=== PATIENT | female | born 1930 | race Caucasian/White ===

== ENCOUNTER 2019-03-05 18:53 | Inpatient (IN) | payer MEDICARE, BC ==
[~2019-03-05] VITALS: Ht 167.6 cm; Wt 74.0 kg
[~2019-03-05 18:53] MED LIST: ACET-3068 PO; CALC-642 PO; CHOL100010 PO; DABI150C PO; DULO-31 PO; FAMO-128 PO; HYDR25TA4 PO; LACT1CAP65 PO; METH4TAB81 PO; SOLI5TAB6 PO; SYN0.1T PO; TRAZ-91 PO; VITA1CAP
[2019-03-05] MEDS ORDERED: acetaminophen 325mg tablet PO STA (19:12)
[2019-03-05] MEDS ORDERED: methylPREDNISolone sod succ 125mg/2ml vial IV ONE (19:15)
[2019-03-05] MEDS ORDERED: ipratropium/albuterol 3ml nebule NEB ONE (19:15)
[2019-03-05] MEDS ORDERED: CefTRIAXone 2gm/D5W 50ml 50 ML IV ONE (19:15)
[2019-03-05] MEDS ORDERED: albuterol 2.5 MG/3 ML nebule NEB ONE (19:15)
[2019-03-05] MEDS ORDERED: LOSA25TA96 PO (19:32)
[2019-03-05] MEDS ORDERED: MULT-955 PO (19:32)
[2019-03-05 19:42] LABS: BASOPHILS # (AUTO) 0.1 X10'3 (0-0.2); EOSINOPHILS # (AUTO) 0.4 X10'3 (0-0.9); EOSINOPHILS % (AUTO) 3.9 % (0-6); HEMATOCRIT 35.4 % (35.0-45.0); HEMOGLOBIN 12.1 g/dl (12.0-16.0); LYMPHOCYTES # (AUTO) 0.8 X10'3 (1.1-4.8); LYMPHOCYTES % (AUTO) 7.4 % (21-51); MEAN CORPUSCULAR HEMOGLOBIN 32.3 PG (27.0-31.0); MEAN CORPUSCULAR HGB CONC 34.2 g/dL (33.0-36.5); MEAN CORPUSCULAR VOLUME 94.4 FL (78-98); MEAN PLATELET VOLUME 7.9 FL (7.4-10.4); MONOCYTES # (AUTO) 1.1 X10'3 (0-0.9); MONOCYTES % (AUTO) 10.7 % (2-12); NEUTROPHILS # (AUTO) 8.3 X10'3 (1.8-7.7); PLATELET COUNT 258 X10'3 (140-440); RED BLOOD COUNT 3.75 X10'6 (4.20-5.60); RED CELL DISTRIBUTION WIDTH 13.8 % (11.5-14.5); WHITE BLOOD COUNT 10.8 X10'3 (4.5-11.0)
[2019-03-05 19:56] LABS: ALANINE AMINOTRANSFERASE 18 U/L (12-78); ALBUMIN 3.4 G/DL (3.4-5.0); ALBUMIN/GLOBULIN RATIO 0.9 (1.1-1.5); ALKALINE PHOSPHATASE 73 IU/L (46-116); ANION GAP 11 (8-16); ASPARTATE AMINO TRANSFERASE 22 U/L (10-37); BILIRUBIN,TOTAL 0.6 MG/DL (0.1-1.0); BLOOD UREA NITROGEN 12 MG/DL (7-18); BUN/CREATININE RATIO 9.2 (6.6-38.0); CHLORIDE 100 MMOL/L (99-107); GLUCOSE 136 MG/DL (70-104); MAGNESIUM 1.7 MG/DL (1.5-2.4); POTASSIUM 4.3 MMOL/L (3.5-5.1); SODIUM 134 MMOL/L (135-145); TOTAL CARBON DIOXIDE 23.3 MMOL/L (24-32); TOTAL PROTEIN 7.4 G/DL (6.4-8.2); eGFR 39 ML/MIN
--- NOTE | 2019-03-05 20:20 | NUR ---
PATIENT DRINKING ICE WATER, COOOL WASH CLOTH TO FOREHEAD
[2019-03-05 20:37] LABS: CLARITY,URINE CLEAR (Clear); COLOR,URINE YELLOW (Yellow); GLUCOSE, URINE NEGATIVE (Neg); KETONES,URINE NEGATIVE (Neg); LEUKOCYTE ESTERASE ,URINE NEGATIVE (Neg); NITRITES, URINE NEGATIVE (Neg); OCCULT BLOOD,URINE TRACE-INTACT (Neg); PH,URINE 6.5 (4.8-8.0); PROTEIN,URINE TRACE mg/dl (Neg); UROBILINOGEN,URINE 0.2 E.U/dL (0.2-1.0)
[2019-03-05 20:48] LABS: BACTERIA,URINE NONE SEEN /HPF (Neg); RBC,URINE 0-2 /HPF (0-2); SQUAMOUS EPITHELIAL CELL,UR FEW /LPF (FEW); UA COLLECTION TYPE CLN CATCH MIDSTREAM; WBC,URINE 0-4 /HPF (0-4)
[2019-03-05] MEDS ORDERED: dabigatran 150mg capsule PO STA (21:17)
[2019-03-05] MEDS ORDERED: traZODone 50mg tablet PO STA (21:17)
[2019-03-05] MEDS ORDERED: losartan 50mg tablet PO STA (21:17)
[2019-03-05] MEDS ORDERED: acetaminophen 325mg tablet PO PRN ×2 (21:20)
[2019-03-05] MEDS ORDERED: magnesium hydroxide 30ml (MOM) UD suspension PO PRN (21:20)
[2019-03-05] MEDS ORDERED: ondansetron/PF 4mg/2ml inj IV PRN (21:20)
[2019-03-05] MEDS ORDERED: mag hydrox/Alum hydrox/simeth 30ml oral suspension PO PRN (21:20)
[2019-03-05] MEDS ORDERED: morphine 2 MG/ML inj. syringe IV PRN ×2 (21:20)
--- NOTE | 2019-03-05 21:20 | NUR ---
Dr Lees said that he would like pradaxa and losartan and trazadone for her for tonight, and for me to order them, so done.
[2019-03-05 23:00] VITALS: BP 144/75
--- NOTE | 2019-03-05 23:00 | NUR ---
joao law she has stress incont when coughing Addendum: 03/06/19 at 0149 by Allegra Lo RN Amended: Links added.
[2019-03-06 06:05] LABS: BASOPHILS % (AUTO) 0.2 % (0-1); EOSINOPHILS % (AUTO) 0.1 % (0-6); HEMATOCRIT 36.1 % (35.0-45.0); HEMOGLOBIN 12.3 g/dl (12.0-16.0); LYMPHOCYTES # (AUTO) 0.8 X10'3 (1.1-4.8); LYMPHOCYTES % (AUTO) 7.8 % (21-51); MEAN CORPUSCULAR HEMOGLOBIN 32.1 PG (27.0-31.0); MEAN CORPUSCULAR VOLUME 94.4 FL (78-98); MEAN PLATELET VOLUME 8.2 FL (7.4-10.4); MONOCYTES # (AUTO) 0.2 X10'3 (0-0.9); MONOCYTES % (AUTO) 2.2 % (2-12); NEUTROPHILS # (AUTO) 8.9 X10'3 (1.8-7.7); NEUTROPHILS % (AUTO) 89.7 % (42-75); PLATELET COUNT 277 X10'3 (140-440); RED BLOOD COUNT 3.82 X10'6 (4.20-5.60); RED CELL DISTRIBUTION WIDTH 13.4 % (11.5-14.5); WHITE BLOOD COUNT 9.9 X10'3 (4.5-11.0)
[2019-03-06 06:23] LABS: ALBUMIN 3.1 G/DL (3.4-5.0); ANION GAP 10 (8-16); BLOOD UREA NITROGEN 12 MG/DL (7-18); BUN/CREATININE RATIO 12.2 (6.6-38.0); CALCIUM 9.1 MG/DL (8.5-10.1); CHLORIDE 105 MMOL/L (99-107); CREATININE 0.98 MG/DL (0.40-0.90); GLUCOSE 200 MG/DL (70-104); SODIUM 139 MMOL/L (135-145); TOTAL CARBON DIOXIDE 23.9 MMOL/L (24-32); eGFR 54 ML/MIN
[2019-03-06 07:20] VITALS: BP 138/72
[2019-03-06] MEDS: multivitamins, therapeutics tablet PO SCH (07:42)
[2019-03-06] MEDS: lactobacillus rhamnosus 10,000 MMU CELLS/CAPSULE PO SCH (07:44)
[2019-03-06] MEDS: levoTHYROXINE 100mcg tablet PO SCH (07:44)
[2019-03-06] MEDS: vitamin D (cholecalciferol) 1,000 unit tablet PO SCH (07:44)
[2019-03-06] MEDS: famotidine 20mg tablet PO SCH ×2 (07:44→20:43)
[2019-03-06] MEDS: oxybutynin 5mg tablet PO SCH ×3 (07:45→20:44)
[2019-03-06] MEDS: dabigatran 150mg capsule PO SCH ×2 (07:46→20:43)
[2019-03-06] MEDS: furosemide 20 MG/2 ML vial IV SCH (07:46)
[2019-03-06] MEDS ORDERED: non-formulary drug (Lactobacillus Acidophilus (Probiotic) 1 EACH) PO SCH (08:00)
[2019-03-06] MEDS ORDERED: levoFLOXACIN-Levaquin 750MG/D5 150 ML IV SCH (08:00)
[2019-03-06] MEDS ORDERED: enoxaparin 40mg/0.4ml syringe SUBCUT SCH (08:00)
[2019-03-06] MEDS ORDERED: HYDROchlorothiazide 25mg tablet PO SCH (08:00)
[2019-03-06] MEDS ORDERED: non-formulary drug (Multivitamin (Daily Value) 1 TAB) PO SCH (08:00)
[2019-03-06] MEDS ORDERED: losartan 25mg tablet PO SCH (08:00)
[2019-03-06 11:23] VITALS: BP 168/78
--- NOTE | 2019-03-06 12:05 | NUR ---
aware of increased BP. Addendum: 03/06/19 at 1205 by Silvia Hall RN Amended: Links added.
[2019-03-06] MEDS ORDERED: amLODIPine 2.5mg tablet PO ONE (12:35)
[2019-03-06] MEDS ORDERED: albuterol 2.5 MG/3 ML nebule ONE (13:25)
[2019-03-06] MEDS ORDERED: albuterol 2.5 MG/3 ML nebule NEB ONE (13:30)
[2019-03-06] MEDS ORDERED: iohexol 300mg/ml 100ml inj. ONE (13:34)
[2019-03-06] MEDS: HYDROcodone/acetaminophen 5mg/325mg tablet PO PRN ×2 (17:40→22:52)
--- NOTE | 2019-03-06 18:22 | NUR ---
Problems reprioritized. Patient report given, questions answered & plan of care reviewed with GRETTA Barros.
--- NOTE | 2019-03-06 18:30 | NUR ---
Patient in room [facility]. I have received report from Silvia GLYNN and had the opportunity to ask questions and assume patient care.
[2019-03-06 19:00] VITALS: BP 140/59
[2019-03-06] MEDS: traZODone 50mg tablet PO SCH (20:44)
[2019-03-06] MEDS: losartan 25mg tablet PO SCH (20:49)
[2019-03-06] MEDS ORDERED: TRAZODONE HCL 100 MG PO SCH (21:00)
--- NOTE | 2019-03-06 22:50 | NUR ---
D/C tele monitoring per MD orders.
[2019-03-07] VITALS: BP 120/68
[2019-03-07 05:42] LABS: BASOPHILS # (AUTO) 0.1 X10'3 (0-0.2); BASOPHILS % (AUTO) 0.4 % (0-1); EOSINOPHILS # (AUTO) 0.1 X10'3 (0-0.9); EOSINOPHILS % (AUTO) 0.7 % (0-6); HEMATOCRIT 33.4 % (35.0-45.0); HEMOGLOBIN 11.1 g/dl (12.0-16.0); LYMPHOCYTES # (AUTO) 0.8 X10'3 (1.1-4.8); LYMPHOCYTES % (AUTO) 5.4 % (21-51); MEAN CORPUSCULAR HEMOGLOBIN 31.4 PG (27.0-31.0); MEAN CORPUSCULAR HGB CONC 33.3 g/dL (33.0-36.5); MEAN CORPUSCULAR VOLUME 94.4 FL (78-98); MEAN PLATELET VOLUME 7.8 FL (7.4-10.4); MONOCYTES # (AUTO) 1.4 X10'3 (0-0.9); MONOCYTES % (AUTO) 8.9 % (2-12); NEUTROPHILS # (AUTO) 13.3 X10'3 (1.8-7.7); NEUTROPHILS % (AUTO) 84.6 % (42-75); PLATELET COUNT 279 X10'3 (140-440); RED BLOOD COUNT 3.54 X10'6 (4.20-5.60); RED CELL DISTRIBUTION WIDTH 13.5 % (11.5-14.5); WHITE BLOOD COUNT 15.7 X10'3 (4.5-11.0)
[2019-03-07 05:47] LABS: ALBUMIN 2.9 G/DL (3.4-5.0); ANION GAP 8 (8-16); BLOOD UREA NITROGEN 16 MG/DL (7-18); BUN/CREATININE RATIO 14.5 (6.6-38.0); CALCIUM 8.8 MG/DL (8.5-10.1); CHLORIDE 104 MMOL/L (99-107); GLUCOSE 119 MG/DL (70-104); SODIUM 138 MMOL/L (135-145); eGFR 47 ML/MIN
--- NOTE | 2019-03-07 06:50 | NUR ---
Problems reprioritized. Patient report given, questions answered & plan of care reviewed with Roselyn GLYNN.
[2019-03-07 07:00] VITALS: BP 131/75
--- NOTE | 2019-03-07 07:09 | NUR ---
Patient in room [facility]. I have received report from Fiorella GLYNN and had the opportunity to ask questions and assume patient care.
[2019-03-07] MEDS: lactobacillus rhamnosus 10,000 MMU CELLS/CAPSULE PO SCH (07:40)
[2019-03-07] MEDS: furosemide 20 MG/2 ML vial IV SCH (07:40)
[2019-03-07] MEDS: oxybutynin 5mg tablet PO SCH ×3 (07:40→20:24)
[2019-03-07] MEDS: multivitamins, therapeutics tablet PO SCH (07:40)
[2019-03-07] MEDS: famotidine 20mg tablet PO SCH ×2 (07:40→20:25)
[2019-03-07] MEDS: levoTHYROXINE 100mcg tablet PO SCH (07:41)
[2019-03-07] MEDS: dabigatran 150mg capsule PO SCH ×2 (07:41→20:25)
[2019-03-07] MEDS: vitamin D (cholecalciferol) 1,000 unit tablet PO SCH (07:42)
[2019-03-07] MEDS: HYDROcodone/acetaminophen 5mg/325mg tablet PO PRN ×2 (10:41→20:23)
[2019-03-07 11:00] VITALS: BP 133/75
--- NOTE | 2019-03-07 18:45 | NUR ---
Problems reprioritized. Patient report given, questions answered & plan of care reviewed with Pat RN.
[2019-03-07] MEDS ORDERED: albuterol 2.5 MG/3 ML nebule NEB PRN (19:00)
[2019-03-07 19:30] VITALS: BP 146/54
--- NOTE | 2019-03-07 19:30 | NUR ---
has stress incont with coughing Addendum: 03/07/19 at 2332 by Allegra Lo RN Amended: Links added.
--- NOTE | 2019-03-07 19:30 | NUR ---
pt aware of new orders for resp tx for SOB or wheezing; denies SOB at this time; also informed of cough med PRN & to call when needed Addendum: 03/07/19 at 2332 by Allegra Lo RN Amended: Links added.
[2019-03-07] MEDS: guaiFENesin/DM 10ml UD oral syrup PO PRN (20:19)
[2019-03-07] MEDS: traZODone 50mg tablet PO SCH (20:24)
[2019-03-07] MEDS: losartan 25mg tablet PO SCH (20:25)
--- NOTE | 2019-03-07 22:35 | NUR ---
Patient in room [facility]. I have received report from GRETTA Ojeda and had the opportunity to ask questions and assume patient care.
[2019-03-08] VITALS: BP 114/59
--- NOTE | 2019-03-08 02:24 | NUR ---
I agree with Dalia Ojeda's physical assessment.
[2019-03-08] MEDS: guaiFENesin/DM 10ml UD oral syrup PO PRN ×2 (04:48→11:15)
[2019-03-08 04:52] LABS: BASOPHILS # (AUTO) 0.1 X10'3 (0-0.2); EOSINOPHILS # (AUTO) 0.7 X10'3 (0-0.9); EOSINOPHILS % (AUTO) 7.3 % (0-6); HEMATOCRIT 35.3 % (35.0-45.0); HEMOGLOBIN 11.9 g/dl (12.0-16.0); LYMPHOCYTES # (AUTO) 1.9 X10'3 (1.1-4.8); LYMPHOCYTES % (AUTO) 19.8 % (21-51); MEAN CORPUSCULAR HGB CONC 33.7 g/dL (33.0-36.5); MEAN CORPUSCULAR VOLUME 94.9 FL (78-98); MEAN PLATELET VOLUME 8.1 FL (7.4-10.4); MONOCYTES # (AUTO) 1.2 X10'3 (0-0.9); MONOCYTES % (AUTO) 12.1 % (2-12); NEUTROPHILS # (AUTO) 5.8 X10'3 (1.8-7.7); NEUTROPHILS % (AUTO) 59.8 % (42-75); PLATELET COUNT 294 X10'3 (140-440); RED BLOOD COUNT 3.72 X10'6 (4.20-5.60); RED CELL DISTRIBUTION WIDTH 13.6 % (11.5-14.5); WHITE BLOOD COUNT 9.7 X10'3 (4.5-11.0)
[2019-03-08 05:16] LABS: ALBUMIN 3.1 G/DL (3.4-5.0); ANION GAP 8 (8-16); BLOOD UREA NITROGEN 16 MG/DL (7-18); BUN/CREATININE RATIO 13.3 (6.6-38.0); CHLORIDE 104 MMOL/L (99-107); GLUCOSE 81 MG/DL (70-104); POTASSIUM 3.8 MMOL/L (3.5-5.1); SODIUM 140 MMOL/L (135-145); TOTAL CARBON DIOXIDE 28.5 MMOL/L (24-32); eGFR 42 ML/MIN
--- NOTE | 2019-03-08 06:01 | NUR ---
Problems reprioritized. Patient report given, questions answered & plan of care reviewed with GRETTA Dempsey.
--- NOTE | 2019-03-08 06:37 | NUR ---
Patient in room [facility]. I have received report from Kal GLYNN and had the opportunity to ask questions and assume patient care.
[2019-03-08 07:00] VITALS: BP 126/68
[2019-03-08] MEDS: losartan 25mg tablet PO SCH (07:23)
[2019-03-08] MEDS: vitamin D (cholecalciferol) 1,000 unit tablet PO SCH (07:23)
[2019-03-08] MEDS: furosemide 20 MG/2 ML vial IV SCH (07:23)
[2019-03-08] MEDS: famotidine 20mg tablet PO SCH (07:24)
[2019-03-08] MEDS: dabigatran 150mg capsule PO SCH (07:24)
[2019-03-08] MEDS: lactobacillus rhamnosus 10,000 MMU CELLS/CAPSULE PO SCH (07:24)
[2019-03-08] MEDS: multivitamins, therapeutics tablet PO SCH (07:24)
[2019-03-08] MEDS: oxybutynin 5mg tablet PO SCH (07:24)
[2019-03-08] MEDS: levoTHYROXINE 100mcg tablet PO SCH (07:24)
[2019-03-08] MEDS ORDERED: levoFLOXACIN-Levaquin 750MG/D5 150 ML IV SCH (08:00)
[2019-03-08] MEDS ORDERED: LEVO500T2 PO (12:23)
--- NOTE | 2019-03-08 18:06 | NUR ---
Patients discharge instructions reviewed with patient and patient verbalized understanding. Patients IV dc'd cannula intact. Patient medications in pharmacy retrieved for patient. [facility] bedside delivery for new medications. Patient retrieved belongings from safe/ security. Patient taken to vehicle via wheelchair. Patient states she has all her belongings/
== END 2019-03-08 13:35 | disposition home or self-care (01) | DRG 871 ==
LOC: ER 18:55 → SUR 3N 22:21 → CMPBEDREQ 03-07 15:16
PROVIDERS: ADMIT Internal Medicine; ATTEND Internal Medicine
DX: A41.9 Sepsis, unspecified organism (principal); I50.33 Acute on chronic diastolic (congestive) heart failure; J96.21 Acute and chronic respiratory failure with hypoxia; J44.1 Chronic obstructive pulmonary disease with (acute) exacerbation; N17.9 Acute kidney failure, unspecified; I13.0 Hypertensive heart and chronic kidney disease with heart failure and stage 1 through stage 4 chronic kidney disease, or unspecified chronic kidney disease; J44.0 Chronic obstructive pulmonary disease with (acute) lower respiratory infection; J20.9 Acute bronchitis, unspecified; I48.0 Paroxysmal atrial fibrillation; D64.9 Anemia, unspecified; E03.9 Hypothyroidism, unspecified; E11.22 Type 2 diabetes mellitus with diabetic chronic kidney disease; E78.5 Hyperlipidemia, unspecified; G89.29 Other chronic pain; M46.46 Discitis, unspecified, lumbar region; R91.1 Solitary pulmonary nodule; W01.0XXA Fall on same level from slipping, tripping and stumbling without subsequent striking against object, initial encounter; E11.42 Type 2 diabetes mellitus with diabetic polyneuropathy; N18.3 Chronic kidney disease, stage 3 (moderate); Z66 Do not resuscitate; Z79.02 Long term (current) use of antithrombotics/antiplatelets; Z79.899 Other long term (current) drug therapy; Z79.890 Hormone replacement therapy; Z88.1 Allergy status to other antibiotic agents; Z88.6 Allergy status to analgesic agent; Z88.8 Allergy status to other drugs, medicaments and biological substances; Z87.891 Personal history of nicotine dependence; Z90.710 Acquired absence of both cervix and uterus; Z90.49 Acquired absence of other specified parts of digestive tract; Y93.89 Activity, other specified; Y92.091 Bathroom in other non-institutional residence as the place of occurrence of the external cause; Y99.8 Other external cause status
CPT/HCPCS: 36415; 71045; 71260; 80048; 80053; 81001; 83605; 83735; 83880; 84145; 84443; 85025; 85610; 87040; 87070; 87081; 93005; 93306; 94640; 94760; 96365; 99285; G0378; J0696; J1940; J1956; J2930; Q9967